=== PATIENT | male | born 1970 | race Two or more races ===

== ENCOUNTER 2020-09-26 10:52 | Emergency (ER) | payer OTHER ==
[~2020-09-26] VITALS: Ht 190.5 cm; Wt 103.4 kg
[2020-09-26 10:54] VITALS: BP 144/96
== END 2020-09-26 13:16 | disposition home or self-care (01) ==
LOC: ER 10:52
DX: S46.911A Strain of unspecified muscle, fascia and tendon at shoulder and upper arm level, right arm, initial encounter (principal); S39.012A Strain of muscle, fascia and tendon of lower back, initial encounter; W00.0XXA Fall on same level due to ice and snow, initial encounter; Y93.89 Activity, other specified; Y92.89 Other specified places as the place of occurrence of the external cause; Y99.8 Other external cause status
CPT/HCPCS: 73060